=== PATIENT | female | born 1955 | race Caucasian/White ===

== ENCOUNTER → 2018-12-31 | Day surgery (SDC) | payer BC ==
[~2018-12-31] MED LIST: Lactated Ringers 1,000 ML IV SCH; Propofol 200 MG/20 ML SDV IV ONE
--- NOTE | 2018-12-31 11:45 | OR ---
DATE OF OPERATION: 12/31/2018 PREOPERATIVE DIAGNOSIS: HISTORY OF POLYPS. POSTOPERATIVE DIAGNOSIS: HISTORY OF POLYPS. SURGEON: Vikram Watkins MD PROCEDURE: FULL-LENGTH COLONOSCOPY. 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 COMPLICATIONS: None. SPECIMEN: None. FINDINGS: 1. Full-length colonoscopy to deep right colon. 2. Poor prep. 3. Essentially normal exam. RECOMMENDATIONS: Routine colonoscopy every 10 years per ACS guidelines. INDICATIONS: The patient had a prior colonoscopy about 8 years ago with a larger tubular adenoma removed. A followup 3 years later was normal. This is a 5-year followup for that. DESCRIPTION OF PROCEDURE: The patient was prepped and draped, placed in the left lateral decubitus position. A lubricated Olympus colonoscope was inserted and with relative ease advanced into the right colon. The patient had a very marginal prep and she had a tortuous colon. The scope was advanced easily to the right colon, I could just not seen much after that. She had a lot of stool in the cecum and proximal ascending region, most of this could not be suctioned with ease. We were able to palpate and visualize the light deep in the right lower quadrant. Upon withdrawal, the cecum and proximal ascending colon were difficult to visualize. What I could see of the remaining ascending colon, transverse areas were completely benign. Through the left colon, there was a lot of stool, but no gross signs of any polyps, mass, ulceration, bleeding sites, vascular abnormalities, or signs of colitis. Certainly smaller lesions possibly could have been missed due to the volume of stool present which was particulate and hard to suction. Rectal vault appeared benign. Retroflexion of scope in the rectum showed no anal lesions. Air was suctioned, scope removed without complication. DAMIR/LYLE /[id number]
== END ==
LOC: CC.SDS 07:26
PROVIDERS: ATTEND Family Medicine
DX: Z12.11 Encounter for screening for malignant neoplasm of colon (principal); E78.5 Hyperlipidemia, unspecified; E03.9 Hypothyroidism, unspecified; E55.9 Vitamin D deficiency, unspecified; Z86.010 Personal history of colon polyps; Z79.82 Long term (current) use of aspirin; Z79.890 Hormone replacement therapy; Z79.899 Other long term (current) drug therapy
CPT/HCPCS: 45378; J2704; J7120